=== PATIENT | female | born 1975 | race Caucasian/White ===

== ENCOUNTER 2017-09-14 13:07 | Emergency (ER) | payer OTHER ==
[~2017-09-14] VITALS: Ht 165.1 cm; Wt 113.4 kg
[~2017-09-14 13:07] MED LIST: GABAPENTIN300 MG PO; METFORMIN HCL500 M1 PO; SERTRALINE HCL100 MG PO; SERTRALINE HCL50 MG PO; ZITHROMAX250 MG PO
[2017-09-14] MEDS ORDERED: PREDNISONE20 MG PO (14:12)
--- NOTE | 2017-09-14 19:25 | EKG ---
[facility] [address] [facility] [place], [place] [address] Signed Normal sinus rhythm Normal ECG No previous ECGs available Confirmed by JEROME WARD MD ([id number]) on 09/14/2017 7:25:03 PM Electronically Signed By: JEROME WARD MD 09/14/17 1925 PATIENT NAME: TREVOR ALANIZ Electrocardiogram DATE OF : 73 PHYSICIAN: JEROME WARD MD REPORT #: [id number] REPORT IS CONFIDENTIAL AND NOT TO BE RELEASED WITHOUT AUTHORIZATION
== END 2017-09-14 14:31 | disposition home or self-care (01) ==
LOC: ED 13:07
DX: J45.909 Unspecified asthma, uncomplicated (principal); F41.9 Anxiety disorder, unspecified; F32.9 Major depressive disorder, single episode, unspecified; E11.9 Type 2 diabetes mellitus without complications; Z90.49 Acquired absence of other specified parts of digestive tract; Z79.84 Long term (current) use of oral hypoglycemic drugs; Z79.899 Other long term (current) drug therapy
CPT/HCPCS: 71020; 80053; 85025; 93005; 93010; 94640; 99284; J7512